=== PATIENT | female | born 1955 | race Caucasian/White ===

== ENCOUNTER 2019-10-28 07:33 | Day surgery (SDC) | payer OTHER ==
[2019-10-28] MEDS ORDERED: Midazolam 1 MG/ML 2 ML SDV ONE (08:21)
[2019-10-28] MEDS ORDERED: fentaNYL 100 MCG/2 ML SDV ONE (08:21)
[2019-10-28] MEDS ORDERED: Propofol 200 MG/20 ML SDV ONE (08:21)
[2019-10-28] MEDS ORDERED: Dextrose 5%-Lactated Ringers 1,000 ML IV SCH (08:30)
--- NOTE | 2019-10-29 13:16 | OR ---
DATE OF PROCEDURE: 10/28/2019 SURGEON: Cosme Ryder MD PREOPERATIVE DIAGNOSIS: Indications for screening colonoscopy. POSTOPERATIVE DIAGNOSIS: Normal colonoscopic examination. OPERATIVE PROCEDURE: Flexible colonoscopy. ANESTHESIA: IV sedation. INDICATION FOR PROCEDURE: This is a 64-year-old female, presenting for a screening colonoscopy. She has no significant family or personal history of colonic neoplasia. Plan is to proceed with a colonoscopy with biopsies and/or polypectomy as indicated. Potential risks of the procedure including bleeding and perforation were discussed, and the patient wishes to proceed. DETAILS OF PROCEDURE: The patient was taken to the operating room and placed in a left lateral decubitus position. IV sedation was administered, after which the initial digital rectal exam was performed and was unremarkable. Colonoscope was then passed into the rectum with retroflexion revealing uncomplicated hemorrhoidal columns. Scope was then eventually passed to the cecum. The prep was fairly good. There was some liquid stool, which obscured a small percent of the mucosal surface that extended. Lesions up to, maybe, 2 mm might be obscured. Much of that fluid was evacuated during the course of the procedure as possible. To that level, the patient was noted to have no diverticular disease, no areas of polyps, no signs of neoplasia, and no areas of colitis. The scope was then withdrawn, the above findings were reconfirmed, and the procedure then concluded. The patient was taken to the recovery room in satisfactory condition. Given the lack of personal or family history of colonic neoplasia, recommended next colonoscopy will be in 10 years and sooner if symptoms at any point warrant an earlier exam. Cosme Ryder MD /[id number]
== END 2019-10-28 11:35 | disposition home or self-care (01) ==
LOC: JP.SDS 07:33
PROVIDERS: ATTEND Surgery
DX: Z12.11 Encounter for screening for malignant neoplasm of colon (principal); K64.9 Unspecified hemorrhoids; F41.9 Anxiety disorder, unspecified; F32.9 Major depressive disorder, single episode, unspecified; Z88.6 Allergy status to analgesic agent
CPT/HCPCS: G0121; J2250; J2704; J3010; J7121